=== PATIENT | male | born 1995 | race Caucasian/White ===

== ENCOUNTER 2021-06-22 09:12 | Outpatient (CLI) | payer OTHER, SELFPAY ==
--- NOTE | ~2021-06-22 | CT_ITS ---
EXAMINATION: CT sinus wo con DATE: 06/22/2021 09:34 INDICATION: Nasal cavity polyps. TECHNIQUE: Computed tomography (CT) of the paranasal sinuses was performed without intravenous contra st. The dose-length product was 290.55 mGy-cm. Automated exposure control and iterative reconstructio n technique were employed. COMPARISON: None FINDINGS: There is mucosal thickening of all paranasal sinuses with near complete opacification. Ther e is rightward nasal septal deviation. Mastoids are pneumatized. No significant mucoperiosteal reacti on. IMPRESSION: 1. Pansinusitis. Reviewed, dictated and finalized at location B. IMPRESSION: 1. Pansinusitis.
== END 2021-06-22 09:13 | disposition home or self-care (01) ==
LOC: ANHIMG 09:15
PROVIDERS: PCP Family Medicine Sports Medicine; Visit Provider Otolaryngology
DX: J33.0 Polyp of nasal cavity (principal); J01.90 Acute sinusitis, unspecified; J32.4 Chronic pansinusitis
CPT/HCPCS: 70486

== ENCOUNTER 2023-11-10 13:53 | Emergency (ER) | payer BC, SELFPAY ==
--- NOTE | ~2023-11-10 | US_ITS ---
EXAMINATION: US scrotum doppler DATE: 11/10/2023 15:43 INDICATION: Right testicular pain TECHNIQUE: Testicular sonogram utilizing grayscale and Doppler COMPARISON: None. FINDINGS: The right testis measures 5.2 x 2.3 x 4.0 cm. The left testis measures 5.1 x 2.5 x 2.9 cm. There is normal vascular flow to both testes. The right epididymis is normal with normal vascular mary w. The left epididymis is normal with normal vascular flow. There is no varicocele or hydrocele. IMPRESSION: 1. No sonographic correlate for the patient's symptoms. Reviewed, dictated and finalized at location B. [employer]
--- NOTE | ~2023-11-10 | CT_ITS ---
EXAMINATION: CT abdomen pelvis wo con DATE: 11/10/2023 14:45 INDICATION: Flank pain TECHNIQUE: Computed tomography (CT) of the abdomen and pelvis was performed without intravenous contr ast. The dose-length product (DLP) was 386.36 mGy-cm. Automated exposure control and iterative recons truction technique were employed. COMPARISON: None FINDINGS: The lung bases are clear. The heart size is normal. The liver, spleen, pancreas, gallbladde r, and adrenal glands are normal. The kidneys are unremarkable. No stones are identified in the kidne ys, ureters, or bladder. No hydronephrosis or hydroureter. No pathologically enlarged abdominal or pe lvic lymph nodes are identified. No free intraperitoneal gas or evidence of bowel obstruction. There is a tiny umbilical hernia containing fat. The appendix is normal. IMPRESSION: 1. No CT correlate for the patient's symptoms. Reviewed, dictated and finalized at location B. ELLA CUTTER
[2023-11-10 14:13] VITALS: BP 172/80; PULSE 82; RESP 16; TEMP 36.7; O2SAT 100
[2023-11-10 14:21] LABS: Appearance Urine Clear (Clear); Bilirubin Urine Negative (Negative); Blood Urine Negative (Negative); Color Urine Yellow (Yellow); Glucose Urine UA Negative (Negative); Ketones Urine Negative (Negative); Leukocyte Esterase Ur Negative LEU/UL (Negative); Nitrate Urine Negative (Negative); Protein Urine Negative (Negative); Specific Grav Ur 1.003 (1.001-1.035); Urobilinogen Urine 0.2 mg/dL (<2.0)
[2023-11-10 14:24] LABS: Add Urine Microscopic? NO
[2023-11-10 14:54] LABS: Basophils Absolute Auto 0.1 K/mm3 (0.0-0.1); Eosinophils Absolute Auto 0.2 K/mm3 (0-0.3); Eosinophils Percent Auto 3.9 % (0-4.4); Hematocrit 44.4 % (42.0-52.0); Hemoglobin 15.9 g/dL (14.0-18.0); Immature Granulocyte Absolute 0.02 K/mm3 (0.00-0.031); Immature Granulocyte Percent A 0.3 % (0-0.5); Lymphocytes Absolute Auto 1.69 K/mm3 (0.9-3.2); Lymphocytes Percent Auto 27.8 % (18.3-44.2); Mean Corpuscular HGB Conc 35.8 g/dl (32-36); Mean Corpuscular Hemoglobin 32.8 pg (26-34); Mean Corpuscular Volume 91.5 fl (80-100); Mean Platelet Volume 10.3 fl (7.4-10.4); Monocytes Absolute Auto 0.5 K/mm3 (0.1-0.6); Monocytes Percent Auto 8.7 % (2.6-8.5); Neutrophils Absolute Auto 3.5 K/mm3 (1.3-6.7); Neutrophils Percent Auto 58.3 % (45.5-73.1); Platelet Count Result 272 k/mm3 (150-375); Red Blood Count 4.85 M/mm3 (4.6-6.20); Red Cell Distribution Width 12.3 % (11.5-14.5); White Blood Count 6.1 K/mm3 (4.5-10.0)
[2023-11-10 15:08] LABS: Alanine Aminotransferase 75 U/L (6-50); Albumin Level 4.7 g/dL (3.5-5.1); Alkaline Phosphatase 70 U/L (38-126); Anion Gap 9 mmol/L (8-16); Aspartate Amino Transferase 45 U/L (17-59); Blood Urea Nitrogen 12 mg/dL (9-20); Calcium 9.5 mg/dL (8.4-10.2); Carbon Dioxide 24 mmol/L (22-30); Chloride 102 mmol/L (98-107); Estimated Glomerular Filt Rate > 60; Glucose 93 mg/dL (65-110); Potassium 3.6 mmol/L (3.4-5.0); Sodium 135 mmol/L (137-145)
[2023-11-10 16:00] VITALS: BP 145/98; PULSE 98; RESP 16; TEMP 36.6; O2SAT 100
[2023-11-10 16:24] LABS: Chlamydia trachomatis NOT DETECTED (NOT DETECTE); Neisseria gonorrhoeae PCR NOT DETECTED (NOT DETECTE)
[2023-11-10 16:57] VITALS: BP 114/71; PULSE 88; RESP 14; TEMP 36.7; O2SAT 100
--- NOTE | 2023-11-10 17:16 | ED.GENADULT ---
HPI - General Adult General Chief complaint: Urogenital-Male Stated complaint: testicle pain Time Seen by Provider: 11/10/23 14:09 History of Present Illness HPI narrative: Patient 28-year-old gentleman who presents emergency department with chief complaint of testicle pain. Patient reports that last night he started having pain in the right testicle patient states for aching like pain the patient went to an urgent care and they recommended to come to the emergency department for evaluation the patient denies penile discharge denies dysuria reports that he has had a little bit of discomfort in his right flank area in the right inguinal area. Related Data Allergies Allergy/AdvReac Type Severity Reaction Status Date / Time No Known Allergies Allergy Verified 11/10/23 13:54 Review of Systems Review of Systems: A 10 system review of systems was completed on the patient and is negative except for what is stated in the HPI. Nursing and ancillary documentation was reviewed. [facility] Family History Family History Mother Breast cancer Grandparent Depression Grandparent Diabetes mellitus Hypertension Depression Social History Social History Tobacco type: e-cigarettes/vaping Alcohol intake: current Substance use: never Substance use type: does not use Exam Narrative: GENERAL: Well-appearing, well-nourished, and in no acute distress. HEAD: Normocephalic, atraumatic. EYES: PERRLA and EOMI. ENT: Nares clear, no rhinorrhea or epistaxis. Mucous membranes moist. NECK: Supple. CHEST: Clear to auscultation. No respiratory distress. HEART: Regular rate and rhythm. No murmur heard. Normal peripheral pulses. ABDOMEN: Soft, nontender, nondistended, normal active bowel sounds. : Testicles are descended positive cremaster reflex, no necrotic tissue no erythema no palpable abscess. EXTREMITIES: Normal range of motion. No edema. SKIN: Warm, dry, no rash. NEURO: No focal deficits. Alert and oriented x3. PSYCH: Normal mood and affect. Course Vital Signs Vital signs: Vital Signs Temperature 36.7 C 11/10/23 14:13 Pulse Rate 82 11/10/23 14:13 Respiratory Rate 16 11/10/23 14:13 Blood Pressure 172/80 H 11/10/23 14:13 Pulse Oximetry 100 11/10/23 14:13 Oxygen Delivery Room Air 11/10/23 14:13 Temperature 36.7 C 11/10/23 16:57 Pulse Rate 88 11/10/23 16:57 Respiratory Rate 14 11/10/23 16:57 Blood Pressure 114/71 11/10/23 16:57 Pulse Oximetry 100 11/10/23 16:57 Oxygen Delivery Room Air 11/10/23 14:13 Medical Decision Making MDM Narrative Medical decision making narrative: Differential diagnosis includes orchitis epididymitis, testicular torsion, urethritis, STI, UTI, ureterolithiasis Laboratory studies were obtained on the patient showed a white count of 6.1 electrolytes were within normal limits ALT was slightly elevated at 75 otherwise liver enzymes were normal urinalysis showed no acute findings chlamydia and gonorrhea test were negative Scrotal ultrasound showed no evidence of testicular torsion no evidence of orchitis no evidence of epididymitis and no evidence of abscess. CT scan of the abdomen pelvis showed no evidence of obstructing stone or any evidence of acute finding. Vital Signs Vital Signs: Vital Signs Temperature 36.7 C 11/10/23 14:13 Pulse Rate 82 11/10/23 14:13 Respiratory Rate 16 11/10/23 14:13 Blood Pressure 172/80 H 11/10/23 14:13 Pulse Oximetry 100 11/10/23 14:13 Oxygen Delivery Room Air 11/10/23 14:13 Temperature 36.7 C 11/10/23 16:57 Pulse Rate 88 11/10/23 16:57 Respiratory Rate 14 11/10/23 16:57 Blood Pressure 114/71 11/10/23 16:57 Pulse Oximetry 100 11/10/23 16:57 Oxygen Delivery Room Air 11/10/23 14:13 Lab Data 11/10/23 14:29 11/10/23 14:29
== END 2023-11-10 17:32 | disposition home or self-care (01) ==
PROVIDERS: Emergency Provider Emergency Medicine; PCP Family Medicine Sports Medicine
DX: N50.811 Right testicular pain (principal); F17.290 Nicotine dependence, other tobacco product, uncomplicated
CPT/HCPCS: 36415; 74176; 76870; 80053; 81003; 85025; 87491; 87591; 93976; 99284